=== PATIENT | male | born 1990 | race Caucasian/White ===

== ENCOUNTER 2021-04-01 17:28 | Emergency (ER) | payer OTHER ==
--- NOTE | 2021-04-01 18:39 | EDM.PDOC ---
ED HPI GENERAL MEDICAL PROBLEM - General Chief Complaint: Upper Extremity Injury/Pain Stated Complaint: LEFT SHOULDER INJURY Time Seen by Provider: 04/01/21 18:18 Source of Information: Reports: Patient History Limitations: Reports: No Limitations - History of Present Illness INITIAL COMMENTS - FREE TEXT/NARRATIVE: 31 yo male presents to ER with left shoulder pain. Earlier this evening he was wrestling and landed on his left shoulder. he does have abrasions to the lateral shoulder. pain with shoulder movement. no other injury generally healthy Left Clavicle Pain Score (Numeric/FACES): 6 Past Medical History HEENT History: Reports: None Cardiovascular History: Reports: None Respiratory History: Reports: None Gastrointestinal History: Reports: None Genitourinary History: Reports: None Musculoskeletal History: Reports: Fracture - Infectious Disease History Infectious Disease History: Reports: Chicken Pox - Past Surgical History HEENT Surgical History: Reports: None GI Surgical History: Reports: EGD, Other (See Below) Other GI Surgeries/Procedures: stomach polyps Social & Family History - Recreational Drug Use Recreational Drug Use: No Review of Systems - Review of Systems Review Of Systems: See Below Constitutional: Denies: Chills, Fever Ears: Denies: Dizziness Respiratory: Denies: Shortness of Breath, Wheezing, Cough Cardiovascular: Denies: Chest Pain Musculoskeletal: Reports: Joint Pain Skin: Reports: Wound (abrasions left shoulder) ED EXAM, GENERAL - Physical Exam Exam: See Below Exam Limited By: No Limitations General Appearance: Alert, WD/WN, No Apparent Distress Respiratory/Chest: No Respiratory Distress Extremities: Other (tenderness to palpation at the distal end of the left clavicle, anterior shoulder, ROM of elbow WNL). No: Joint Swelling Neurological: Alert, Oriented Course - Vital Signs Last Recorded V/S: Last Vital Signs Temp 36.8 C 04/01/21 18:17 Pulse 76 04/01/21 18:17 Resp 16 04/01/21 18:17 BP 136/82 04/01/21 18:17 Pulse Ox 99 04/01/21 18:17 - Orders/Labs/Meds Orders: Active Orders 24 hr Category Date Time Status Shoulder Comp Lt [CR] Stat Exams 04/01/21 18:24 Taken - Re-Assessments/Exams Free Text/Narrative Re-Assessment/Exam: 04/01/21 19:25 31 yo in no acute distress presents with an injury of the shoulder. shoulder x- ray no acute fracture however does show AC separation. pt placed in a sling. instructed to removed for ROM of elbow at least 3 times per day. after 72 hours activity as tolerated. IF no improvement in 7 days follow-up with orthopedic or primary care. 04/01/21 19:28 Departure - Departure Time of Disposition: 19:30 Disposition: Home, Self-Care 01 Condition: Good Clinical Impression: AC separation Qualifiers: Encounter type: initial encounter Laterality: left Qualified Code(s): S43.102A - Unspecified dislocation of left acromioclavicular joint, initial encounter - Discharge Information *PRESCRIPTION DRUG MONITORING PROGRAM REVIEWED*: Not Applicable *COPY OF PRESCRIPTION DRUG MONITORING REPORT IN PATIENT ROBERTA: Not Applicable Instructions: Acromioclavicular Separation Referrals: PCP,Unknown [Primary Care Provider] - Forms: ED Department Discharge Additional Instructions: ice as much as possible over the next 72 hours ibuprofen 600-800 mg every 6 hours and acetaminophen [address] for 2 days - remove at least 3 times daily for range of motion movement of the elbow if no improvement in 7 days follow-up with orthopedic or primary care for repeat exam and x-ray Sepsis Event Note (ED) - Evaluation Sepsis Screening Result: No Definite Risk - Focused Exam Vital Signs: Vital Signs Temp Pulse Resp BP Pulse Ox 04/01/21 18:17 36.8 C 76 16 136/82 99 04/01/21 18:10 36.8 C 76 16 136/82 99 - My Orders Last 24 Hours: My Active Orders 04/01/21 18:24 Shoulder Comp Lt [CR] Stat - Assessment/Plan Last 24 Hours: My Active Orders 04/01/21 18:24 Shoulder Comp Lt [CR] Stat
--- NOTE | 2021-04-03 10:06 | CR ---
Shoulder Comp Lt CLINICAL HISTORY: Trauma FINDINGS: There is no acute fracture or dislocation in the left shoulder. There may be some mild widening of the AC joint. Impression: No fracture seen Possible mild AC joint widening. If clinically relevant the bilateral weightbearing views may be helpful
== END 2021-04-01 20:21 | disposition home or self-care (01) ==
LOC: JP.ED 17:28
DX: S43.102A Unspecified dislocation of left acromioclavicular joint, initial encounter (principal); X58.XXXA Exposure to other specified factors, initial encounter; Y93.72 Activity, wrestling
CPT/HCPCS: 73030-26-LT; 73030-LT; 99283-25